=== PATIENT | female | born 1955 ===

== ENCOUNTER → 2018-12-07 | Outpatient (REF) | payer MEDICARE ==
[2018-12-07 14:11] LABS: INFLUENZA A AMPLIFICATION NEGATIVE (NEGATIVE); INFLUENZA B AMPLIFICATION NEGATIVE (NEGATIVE)
== END ==
LOC: M LAB REF 12:25
PROVIDERS: ATTEND Nurse Practitioner Adult Health
DX: J06.9 Acute upper respiratory infection, unspecified (principal)

== ENCOUNTER → 2021-03-31 | Outpatient (REF) | payer MEDICARE ==
[2021-03-31 12:27] LABS: TOTAL PROTEIN 7.3 GM/DL (6.4-8.2)
[2021-03-31 12:35] LABS: PTH INTACT 57.3 PG/ML (18.5-88.0)
== END ==
LOC: M LAB REF 11:23
PROVIDERS: ATTEND Internal Medicine
DX: R79.89 Other specified abnormal findings of blood chemistry (principal); E83.52 Hypercalcemia

== ENCOUNTER → 2021-05-12 | Outpatient (REF) | payer MEDICARE ==
[2021-05-13 07:33] LABS: CALCIUM, 24 HOUR URINE 271.8 MG/24HR (42-353); CALCIUM, URINE 15.1 MG/DL; CREATININE 24 HOUR, URINE 799.2 MG/24HR (600-1800); CREATININE, URINE 44.4 MG/DL
== END ==
LOC: M LAB REF 12:39
PROVIDERS: ATTEND Internal Medicine Endocrinology, Diabetes & Metabolism
DX: E83.52 Hypercalcemia (principal)